=== PATIENT | male | born 1995 | race Caucasian/White ===

== ENCOUNTER 2021-12-02 15:43 | Inpatient (IN) | payer OTHER ==
[~2021-12-02] VITALS: Ht 185.4 cm; Wt 65.3 kg
[2021-12-02 15:50] VITALS: BP 150/125
[2021-12-02 17:43] LABS: ABSOLUTE EOSINOPHILS 0.1 thou/uL (0.0-0.7); ABSOLUTE LYMPHOCYTES 1.6 thou/uL (0.8-5.3); ABSOLUTE MONOCYTES 0.4 thou/uL (0.0-1.2); BASOPHILS 0.5 %; EOSINOPHILS 1.2 %; HEMATOCRIT 45.4 % (42.0-52.0); HEMOGLOBIN 15.5 gm/dL (14.0-18.0); LYMPHOCYTES 17.1 %; MCH 32.5 pg (26.0-34.0); MCHC 34.2 g/dL (28.0-37.0); MCV 94.8 fL (80.0-100.0); MONOCYTES 4.6 %; MPV 7.7 fl. (7.2-11.1); NUCLEATED RBCS 0 /100WBC; PLATELET COUNT* 303 thou/uL (150-400); POLYS 76.6 %; RBC 4.79 mil/uL (4.50-6.00); RDW-CV 12.6 % (10.5-14.5); WBC 9.1 thou/uL (4.0-11.0)
[2021-12-02 17:54] LABS: CALCIUM 9.4 mg/dL (8.5-10.1); POTASSIUM 4.2 mmol/L (3.5-5.1)
[2021-12-02 18:04] LABS: ALBUMIN 4.6 g/dL (3.4-5.0); MAGNESIUM 2.1 mg/dL (1.8-2.4); TOTAL BILIRUBIN 0.5 mg/dL (<0.1-1.0); TOTAL PROTEIN 7.6 g/dL (6.4-8.2)
[2021-12-03] VITALS (7 sets, daily range): BP systolic 114–127; BP diastolic 72–78
--- NOTE | 2021-12-03 09:41 | EKG ---
[place] [address] ELECTROCARDIOGRAM REPORT Name: SOILA GUZMANMICHAEL Mcallister Room: [address] IN [facility]#: [id number] Admission: 12/02/21 Attend Phys: Wilton Thomason, Discharge: Date of : [birth year] Date of Service: 12/02/21 1546 Report #: [id number] THIS REPORT FOR: //name// ED Test Date: 2021-12-02 Test Time: 15:46:26 Pat Name: NEGAR GUZMAN Department: Room: [facility] Gender: M Sifter And Miller: NICOLE : 1995 Requested By: Ramon Harding Order Number: [id number] MD: Renny Marshall Measurements Intervals [place] Rate: 110 P: 94 MN: 140 QRS: 31 QRSD: 92 T: 53 QT: 304 QTc: 412 Interpretive Statements Sinus tachycardia Right atrial enlargement No previous ECG available for comparison Electronically Signed On 12-03-2021 9:41:21 MILITARY EDUCATION COORDINATOR by Renny Marshall [email or web address] <ELECTRONICALLY SIGNED> By: Renny Marshall MD, [facility] 12/03/21 0941 1546 1546 Renny Marshall MD, [facility] /EPI
[2021-12-04 00:13] VITALS: BP 125/73
[2021-12-04 04:00] VITALS: BP 122/75
[2021-12-04 06:19] LABS: ABSOLUTE EOSINOPHILS 0.2 thou/uL (0.0-0.7); ABSOLUTE LYMPHOCYTES 1.9 thou/uL (0.8-5.3); ABSOLUTE MONOCYTES 0.4 thou/uL (0.0-1.2); ABSOLUTE NEUTROPHILS 3.4 thou/uL (1.6-8.1); BASOPHILS 0.3 %; EOSINOPHILS 4.1 %; HEMATOCRIT 42.4 % (42.0-52.0); HEMOGLOBIN 14.4 gm/dL (14.0-18.0); LYMPHOCYTES 31.6 %; MCH 31.8 pg (26.0-34.0); MCHC 33.9 g/dL (28.0-37.0); MONOCYTES 6.4 %; MPV 7.7 fl. (7.2-11.1); NUCLEATED RBCS 0 /100WBC; PLATELET COUNT* 258 thou/uL (150-400); POLYS 57.6 %; RBC 4.51 mil/uL (4.50-6.00); RDW-CV 12.5 % (10.5-14.5)
[2021-12-04 07:01] LABS: CALCIUM 9.1 mg/dL (8.5-10.1); CREATININE 0.8 mg/dL (0.6-1.3); POTASSIUM 3.9 mmol/L (3.5-5.1)
[2021-12-04 08:28] VITALS: BP 113/70
[2021-12-04 12:00] VITALS: BP 120/77
[2021-12-04 16:00] VITALS: BP 109/73
[2021-12-04 20:00] VITALS: BP 118/78
[2021-12-05] VITALS: BP 10/63
[2021-12-05 04:00] VITALS: BP 105/67
[2021-12-05 08:07] VITALS: BP 123/69
[2021-12-05 12:00] VITALS: BP 119/70
[2021-12-05 16:00] VITALS: BP 110/76
[2021-12-05 20:09] VITALS: BP 142/61
[2021-12-06 01:54] VITALS: BP 120/75
[2021-12-06 04:10] VITALS: BP 129/84
[2021-12-06 08:00] VITALS: BP 129/75
[2021-12-06 12:00] VITALS: BP 142/77
--- NOTE | 2021-12-06 13:43 | EKG ---
[place] [address] ELECTROCARDIOGRAM REPORT Name: SOILA GUZMANMICHAEL Mcallister Room: [address] ADM IN [facility]#: [id number] Admission: 12/02/21 Attend Phys: Wilton Thomason, Discharge: Date of : [birth year] Date of Service: 12/06/21 1314 Report #: [id number] THIS REPORT FOR: //name// [facility] Test Date: 2021-12-06 Test Time: 13:14:02 Pat Name: NEGAR GUZMAN Department: Room: [address] Gender: M [employer]: ROSIBEL : 1995 Requested By: Wilton Thomason Order Number: [id number] Reading MD: Renny Marshall Measurements Intervals [place] Rate: 95 P: 67 [place]: 127 QRS: -4 QRSD: 84 T: 67 QT: 315 QTc: 396 Interpretive Statements Sinus rhythm Left atrial enlargement RSR' in V1 or V2, right VCD or RVH Compared to ECG 12/02/2021 15:46:26 RSR' in V1 or V2 now present Sinus tachycardia no longer present Electronically Signed On 12-06-2021 13:43:34 PHOTOVOLTAIC PANEL INSTALLER by Renny Marshall [email or web address] <ELECTRONICALLY SIGNED> By: Renny Marshall MD, [facility] 12/06/21 1343 1314 1314 Renny Marshall MD, [facility] /EPI
[2021-12-06 16:00] VITALS: BP 110/76
[2021-12-06 21:06] VITALS: BP 140/83
[2021-12-07] VITALS: BP 123/77
[2021-12-07 04:00] VITALS: BP 123/80
[2021-12-07 08:00] VITALS: BP 129/84
[2021-12-07 12:08] VITALS: BP 132/90
--- NOTE | 2021-12-07 15:15 | CON ---
[address] [address] CONSULTATION Name: NEGAR GUZMAN Ary Room: [address] IN .R.#: [id number] Admission: 12/02/21 Attend Phys: Wilton Thomason MD Discharge: Date of : [birth year] Report #: [id number] THIS REPORT FOR: cc: MERRY - No family physician/PCP FAM - No family physician/PCP Too Beltran MD ~ DATE OF CONSULTATION: 12/03/2021 REQUESTING PHYSICIAN: Wilton Thomason MD INDICATION FOR CONSULTATION: Spontaneous pneumothorax and hyperinflation on chest x-ray. HISTORY OF PRESENT ILLNESS: This is a 26-year-old gentleman. He does have a previous history of smoking. He has now switched over to vaping. He does not have a family history of alpha-1 antitrypsin deficiency or pneumothorax. The patient presented with sudden chest pain and shortness of breath and was found to have a large pneumothorax on the right side. Now, has a chest tube in place. The lung is expanded. He does have hyperinflation on the chest x-ray. There are no other major finding on the chest x-ray REVIEW OF SYSTEMS: For 12 points is negative except as mentioned above. His chest pain is now better. He is on room air. He is comfortable. PAST MEDICAL HISTORY: Insomnia, otherwise unremarkable. COVID-19 in summer of 2020. SOCIAL HISTORY: He started smoking at the age of 15, eventually switched over to vaping. Occasionally uses marijuana. No known history of illegal drug use. Occasional alcohol use. ALLERGIES: No known drug allergies. FAMILY HISTORY: No pertinent family history. CURRENT MEDICATIONS: List in [facility] reviewed. HOME MEDICATIONS: No home medications. PHYSICAL EXAMINATION: GENERAL: He is alert, awake and oriented. VITAL SIGNS: In the records reviewed. He is on room air. HEENT: Head is normocephalic and atraumatic. Pupils are equal and reactive. There is no throat erythema. NECK: [place] [address] CONSULTATION Name: MILOKIRSTENNEGAR Room: [address]#: [id number] Admission: 12/02/21 Attend Phys: Wilton Thomason MD Discharge: Date of : 89 Report #: [id number] CHEST: Clear to auscultation. HEART: Regular. There is no murmur. ABDOMEN: Soft and nontender. EXTREMITIES: Lower extremities show no edema, no calf tenderness. Chest x-rays as well as lab work in [facility] is reviewed. ASSESSMENT AND PLAN: 1. Spontaneous pneumothorax with hyperinflation on chest x-ray. Chest tube is being managed by the Surgery Service. I would defer to them. The two most frequent etiologies of these findings are chronic obstructive pulmonary disease secondary to cigarette smoking or alpha-1 antitrypsin deficiency. The patient has smoked in the past and still vapes as well as has used marijuana, so he does have this history and I would recommend discontinuing use of marijuana as well as vaping; however, he is only 26 years old and he first started smoking at the age of 15. Therefore, time duration for this to cause these findings would be unusual. Also, he does not have any risk factors or family history for alpha-1 antitrypsin deficiency. However, I would like to check a level. We would follow chest x-rays and would verify resolution of this pneumothorax. At a later stage, I would consider obtaining a CT chest without contrast to note that his D-dimer is not elevated, to look at the underlying lung parenchyma and evaluate for underlying emphysematous bulla/bleb that may not be visible on chest x-ray, could do this later this admission or as an outpatient as well. The patient does need pulmonary function testing once he is recovered from the current episode, but I would await at least 2-3 months and verify resolution of the pneumothorax first. The patient was advised that if he is subjected to air pressure changes such as flying or deep sea diving, then in particular he will be at risk of recurrence of the pneumothorax since he did have a spontaneous pneumothorax once he is slightly higher than average risk of having pneumothorax again later in life. Deep venous thrombosis prophylaxis, on Lovenox. Fluid and electrolytes. Appears to be well hydrated. We will discontinue IV fluids at this time. We will follow his alpha-1 antitrypsin level. Also I will be happy to arrange his outpatient followup and pulmonary function testing in 2-3 [place] [address] CONSULTATION Name: NEGAR GUZMAN Ary Room: [address] IN [facility].#: [id number] Admission: 12/02/21 Attend Phys: Wilton Thomason MD Discharge: Date of : 89 Report #: [id number] Thanks for this consultation. <ELECTRONICALLY SIGNED> By: Too Beltran MD 12/07/21 1515 1439 1923Aomar Beltran MD /nt
[2021-12-07 16:00] VITALS: BP 125/82
[2021-12-07 20:00] VITALS: BP 113/71
[2021-12-08] VITALS (7 sets, daily range): BP systolic 114–131; BP diastolic 63–82
[2021-12-08 05:47] LABS: HEMATOCRIT 41.6 % (42.0-52.0); HEMOGLOBIN 13.9 gm/dL (14.0-18.0); MCH 31.8 pg (26.0-34.0); MCHC 33.3 g/dL (28.0-37.0); MCV 95.2 fL (80.0-100.0); MPV 7.7 fl. (7.2-11.1); RBC 4.37 mil/uL (4.50-6.00); RDW-CV 12.3 % (10.5-14.5); WBC 5.5 thou/uL (4.0-11.0)
[2021-12-08 06:13] LABS: CALCIUM 9.1 mg/dL (8.5-10.1); CREATININE 0.8 mg/dL (0.6-1.3); POTASSIUM 3.8 mmol/L (3.5-5.1)
[2021-12-09 04:56] VITALS: BP 13232/7
[2021-12-09 07:55] VITALS: BP 131/77
[2021-12-09 11:29] VITALS: BP 114/65
[2021-12-09 13:23] VITALS: BP 114/65
== END 2021-12-09 15:44 | disposition home or self-care (01) | DRG 201 ==
LOC: M.ERS 15:43 → M.TBA-ER 19:01 → M.2W 19:01
PROVIDERS: Emergency Medicine Emergency Medical Services; Student in an Organized Health Care Education/Training Program; ADMIT Internal Medicine; ATTEND Internal Medicine
PROC: 0W9900Z Drainage of Right Pleural Cavity with Drainage Device, Open Approach (ICD-10-PCS; principal; 2021-12-04)
PROC: 5A0935A Assistance with Respiratory Ventilation, Less than 24 Consecutive Hours, High Flow/Velocity Cannula (ICD-10-PCS; 2021-12-05)
DX: J93.9 Pneumothorax, unspecified (principal); J43.9 Emphysema, unspecified; F17.210 Nicotine dependence, cigarettes, uncomplicated; Z20.822 Contact with and (suspected) exposure to COVID-19; Z86.16 Personal history of COVID-19; Z71.6 Tobacco abuse counseling